=== PATIENT | female | born 1985 | race Caucasian/White ===

== ENCOUNTER → 2016-09-25 | Outpatient (CLI) | payer BC ==
[2016-09-25 12:33] LABS: CH 31.3; HCT 34.2 % (34.0-46.0); HDW 2.55; HGB 12.1 gm/dL (11.4-16.0); MCH 31.8 pg (25.0-35.0); MCHC 35.4 g/dL (31.0-37.0); MCV 89.8 fL (80.0-100.0); Mean Platelet Volume 7.2; RBC 3.81 m/uL (3.80-5.40); RDW 12.1 % (11.5-15.5); WBC 9.2 k/uL (3.8-10.6)
[2016-09-25 12:37] LABS: Amorphous Sediment,Urine Rare /hpf; Appearance,Urine Clear (Clear); Bacteria,Urine Rare /hpf; Bilirubin,Urine Negative (Negative); Glucose,Urine (UA) Negative (Negative); Ketones,Urine Negative (Negative); Leukocyte Esterase,Urine Trace (Negative); Nitrite,Urine Negative (Negative); Particle Count 3414; Protein,Urine Negative (Negative); RBC,Urine <1 /hpf (0-5); Specific Gravity,Urine 1.008 (1.001-1.035); Squamous Epithelial Cell,Urine 2 /hpf (0-4); UA Billing (MACRO vs. MICRO) MICRO; Urobilinogen,Urine <2.0 mg/dL (<2.0); WBC,Urine <1 /hpf (0-5)
[2016-09-25 12:40] LABS: Glucose 76 mg/dL (74-99); Non-African American GFR(MDRD) >60 (>60 ml/min/1.73 sqM)
[2016-09-25 13:13] LABS: Hepatitis B Surface Ag Index 0.07
== END | disposition home or self-care (01) ==
LOC: LABWHC1 11:57
PROVIDERS: ATTEND Obstetrics & Gynecology
DX: Z34.01 Encounter for supervision of normal first pregnancy, first trimester (principal); Z3A.00 Weeks of gestation of pregnancy not specified
CPT/HCPCS: 36415; 81001; 81220; 82565; 82947; 85027; 86762; 86780; 86850; 86900; 86901; 87086; 87340; 87491; 87591

== ENCOUNTER 2017-01-26 10:55 | Outpatient (CLI) | payer BC ==
[2017-01-26 11:43] LABS: Appearance,Urine Clear (Clear); Bacteria,Urine Occasional /hpf; Bilirubin,Urine Negative (Negative); Glucose,Urine (UA) Negative (Negative); Ketones,Urine Negative (Negative); Leukocyte Esterase,Urine Small (Negative); Nitrite,Urine Negative (Negative); Particle Count 3026; Protein,Urine Negative (Negative); Specific Gravity,Urine 1.003 (1.001-1.035); Squamous Epithelial Cell,Urine 3 /hpf (0-4); UA Billing (MACRO vs. MICRO) MICRO; Urobilinogen,Urine <2.0 mg/dL (<2.0); WBC,Urine 1 /hpf (0-5)
[2017-01-26 12:21] LABS: Basophils % (A) 0 %; CH 30.7; CHCM 33.8; Eosinophils # (A) 0.1 k/uL (0-0.7); Eosinophils % (A) 1 %; HCT 36.9 % (34.0-46.0); HDW 2.68; HGB 12.5 gm/dL (11.4-16.0); Luc # (Auto) 0.16; Luc % (Auto) 1; Lymphocytes % (A) 18 %; MCHC 33.9 g/dL (31.0-37.0); MCV 91.3 fL (80.0-100.0); Monocytes # (A) 0.4 k/uL (0-1.0); Monocytes % (A) 4 %; Neutrophils # (A) 8.5 k/uL (1.3-7.7); Neutrophils % (A) 76 %; RBC 4.04 m/uL (3.80-5.40); RDW 13.1 % (11.5-15.5); WBC 11.2 k/uL (3.8-10.6); WBC (Perox) 11.62
[2017-01-26 12:32] LABS: ALT 29 U/L (9-52); AST 23 U/L (14-36); Blood Urea Nitrogen 5 mg/dL (7-17); LDH 439 U/L (313-618); Non-African American GFR(MDRD) >60 (>60 ml/min/1.73 sqM); Uric Acid 4.8 mg/dL (3.7-7.4)
--- NOTE | 2017-04-11 07:45 | P.MSEPDOC ---
Presenting Problems - Arrival Data Date of Arrival on Unit: 01/26/17 Time of Arrival on Unit: 10:55 Mode of Transport: Wheelchair Medical History - Information : 1 Para: 0 Term: 0 : 0 Abortions: Spontaneous or Elective: 0 Number of Living Children: 0 - Gestational Age Gestational Age by YULIANA (wks/days): 34 Weeks and 6 Days Disposition - Disposition Discharge Date: 01/26/17 Discharge Time: 14:23 I agree with the RN Medical Screening Exam: Yes Risk & Benefit of care provided described in d/c instruction: Yes Diagnosis: RELATED CONDITIONS, UNSPECIFIED, THIRD TRIMESTER ( hypertension)
== END 2017-01-26 14:23 | disposition home or self-care (01) ==
LOC: FBPOP 10:55 → MERGE 10:55 → FBPOP 14:23
PROVIDERS: ATTEND Obstetrics & Gynecology
DX: O16.3 Unspecified maternal hypertension, third trimester (principal); Z3A.34 34 weeks gestation of pregnancy
CPT/HCPCS: 59025; 81001; 81050; 82565; 83615; 84156; 84450; 84460; 84520; 84550; 85025; 99215

== ENCOUNTER 2017-02-26 05:45 | Inpatient (IN) | payer BC, OTHER ==
[2017-02-26] MEDS ORDERED: ceFAZolin IN SWFI 2 GM/20 ML SYRINGE IVP ONE (05:59)
[2017-02-26] MEDS ORDERED: CITRIC ACID-SODIUM CITRATE 15 ML CUP PO ONE (05:59)
[2017-02-26] MEDS: LACTATED RINGERS 1,000 ML IV SCH ×4 (06:07→21:08)
[2017-02-26 06:28] LABS: Basophils % (A) 0 %; CH 30.6; CHCM 33.9; Eosinophils # (A) 0.1 k/uL (0-0.7); Eosinophils % (A) 1 %; HCT 38.7 % (34.0-46.0); HDW 2.73; HGB 12.9 gm/dL (11.4-16.0); Luc # (Auto) 0.14; Luc % (Auto) 1; Lymphocytes # (A) 2.7 k/uL (1.0-4.8); Lymphocytes % (A) 27 %; MCH 30.2 pg (25.0-35.0); MCHC 33.3 g/dL (31.0-37.0); MCV 90.8 fL (80.0-100.0); Mean Platelet Volume 7.4; Monocytes # (A) 0.5 k/uL (0-1.0); Monocytes % (A) 5 %; Neutrophils # (A) 6.8 k/uL (1.3-7.7); Neutrophils % (A) 66 %; RBC 4.27 m/uL (3.80-5.40); RDW 13.5 % (11.5-15.5); WBC 10.3 k/uL (3.8-10.6); WBC (Perox) 10.17
[2017-02-26 07:38] VITALS: BMI 32.2
[2017-02-26] MEDS ORDERED: OXYTOCIN 10 UNIT/ML 1 ML VIAL ONE (07:49)
[2017-02-26] MEDS ORDERED: MORPHINE SULFATE (PF) 0.3 MG/0.3 ML SYR ONE (07:49)
[2017-02-26] MEDS ORDERED: KETOROLAC 30 MG/ML 1 ML VIAL ONE (07:49)
[2017-02-26] MEDS ORDERED: ONDANSETRON 4 MG/2 ML VIAL ONE (07:49)
[2017-02-26] MEDS ORDERED: ONDANSETRON 4 MG/2 ML VIAL IVP PRN (08:28)
[2017-02-26] MEDS ORDERED: diphenhydrAMINE 50 MG CAP PO PRN (08:28)
[2017-02-26] MEDS ORDERED: NALOXONE 0.4 MG/ML 1 ML VIAL IV PRN (08:28)
[2017-02-26] MEDS ORDERED: diphenhydrAMINE 50 MG/ML 1 ML VIAL IVP PRN ×2 (08:28)
[2017-02-26] MEDS ORDERED: Acetaminophen-Codeine 300-30mg TAB PO PRN (08:28)
[2017-02-26] MEDS ORDERED: ACETAMINOPHEN TAB 325 MG TAB PO PRN (08:28)
[2017-02-26] MEDS ORDERED: diphenhydrAMINE 25 MG CAP PO PRN (08:28)
[2017-02-26] MEDS ORDERED: ZOLPIDEM 5 MG TAB PO PRN (08:28)
[2017-02-26] MEDS ORDERED: SIMETHICONE 80 MG CHEWABLE PO PRN (08:28)
[2017-02-26] MEDS ORDERED: METOCLOPRAMIDE 5 MG/ML 2 ML VIAL IVP PRN (08:28)
--- NOTE | 2017-02-26 08:31 | P.HPOB ---
History of Present Illness H&P Date: 02/26/17 Chief Complaint: Intrauterine term she had HSV Pablito is a 31-year-old at 39 weeks gestation arise for primary section for history of HSV. Her course was generally uncomplicated other than one outbreak during the she was initiated on Valtrex through the [facility]. She is a carrier for cystic fibrosis but her was going not going to be examined are checked for cystic fibrosis until after baby was born as their insurance would not cover it I did advise 100 it was better to gotten done prior to this but they cannot do it at this time. On physical exam vital signs are stable and afebrile. Heart regular, lungs clear, extremities without pain area positive bowel sounds are noted. Pertinent labs include O+ blood type Rh antibody was negative. Rubella is immune. Hepatitis B surface antigen and RPR were both negative. Assessment intrauterine term. Plan primary low transverse section. Past Medical History Past Medical History: GERD/Reflux Additional Past Medical History / Comment(s): herpes History of Any Multi-Drug Resistant Organisms: MRSA Date of last positivie culture/infection: 2009 MDRO Source:: rt knee Additional Past Surgical History / Comment(s): EGD Past Anesthesia/Blood Transfusion Reactions: Motion Sickness Past Psychological History: No Psychological Hx Reported Smoking Status: Former smoker Past Alcohol Use History: None Reported Additional Past Alcohol Use History / Comment(s): quit smoking 9 months ago, started smoking age 20 Past Drug Use History: None Reported - Past Family History Mother Family Medical History: Cancer, Deep Vein Thrombosis (DVT) Medications and Allergies Home Medications Medication Instructions Recorded Confirmed Type Omeprazole [PriLOSEC] 20 mg PO AC-BRKFST 02/20/17 02/26/17 History Ondansetron HCl [Zofran] 4 mg PO DIRECTED PRN 02/20/17 02/20/17 History Pnv No.95/Ferrous Fum/Folic AC 1 each PO DAILY 02/20/17 02/26/17 History [ Multivitamin Tablet] valACYclovir HCL [Valtrex] 1,000 mg PO DAILY 02/20/17 02/26/17 History Allergies Allergy/AdvReac Type Severity Reaction Status Date / Time No Known Allergies Allergy Verified 02/26/17 05:57 Exam Osteopathic Statement: *. No significant issues noted on an osteopathic structural exam other than those noted in the History and Physical/Consult. - Vital Signs Vital signs: Vital Signs Temp Pulse Resp BP Pulse Ox 02/26/17 07:33 96.8 F L 69 16 130/84 98 Intake and Output 02/25/17 02/26/17 02/26/17 22:59 06:59 14:59 Other: # Voids 1 Weight 93.44 kg Patient Weight 02/27/17 06:59 Weight 93.44 kg Results Result Diagrams: 02/26/17 06:07
--- NOTE | 2017-02-26 08:34 | P.OP ---
Date of Procedure: 02/26/17 Preoperative Diagnosis: Intrauterine at term with history of HSV Postoperative Diagnosis: Same Procedure(s) Performed: Primary low transverse section from Pfannenstiel Anesthesia: spinal Surgeon: Stan Horton Radio Presenter #1: Saman Altman Estimated Blood Loss (ml): 600 IV fluids (ml): 1,000 Urine output (ml): 100 Pathology: other (Placenta) Condition: stable Disposition: floor Operative Findings: Female with Apgars of 9 and 9 at one and 5 minutes and a weight of 7 lbs. 8 oz. Description of Procedure: Patient was taken to the operating suite where a spinal anesthetic was found be adequate. She was prepped and draped in the normal sterile fashion and placed in the dorsal supine position with leftward tilt. Initially a Pfannenstiel skin incision was made this incision was then carried through to the underlying layer of the fashion with a second knife. Fascia was then nicked in the midline and this opening was extended laterally with Messina scissors. Superior and inferior aspect of this incision were then grasped tented up and bluntly and sharply dissected off the rectus muscles. Rectus muscles were then divided in the midline and blunt dissection through the peritoneum was made. This opening was then extended superiorly and inferiorly with good visualization of both bowel and bladder. Bladder blade was placed and the bladder flap was identified. It was entered sharply with Metzenbaum scissors and this opening was extended across the face of the uterus with Metzenbaum scissors and bladder flap was fully created digitally. Knife was then used to incise uterus hemostat was then used to fully go through the uterine wall and this opening was extended bluntly. Head was then atraumatically delivered and mouth and nares were bulb suctioned. Anterior and posterior shoulders were then delivered with gentle downward and upward traction followed by the remainder the baby. Umbilical cord was clamped cut usual fashion an nursery personnel was present to assume care. Placenta was then delivered intact and Pitocin was added to the IV. Uterus was then exteriorized cleared of clots and debris and closed in 2 layers with 0 Vicryl suture. Once excellent hemostasis was obtained 3-0 Vicryl reapproximated the bladder flap. Blood and debris was then suctioned from the posterior cul-de-sac and the uterus was reinserted into the abdomen. Peritoneal layer was then closed [place] suture fascial layer was closed with 0 Vicryl suture one layer of 3-0 Vicryl was placed in the deep subcuticular tissues to close the space the skin was then closed with 3-0 Vicryl on a Jackson needle. Sponge, lap, needle counts were all correct 2. Patient was then taken to the recovery room in stable and satisfactory condition.
[2017-02-26] MEDS: KETOROLAC 30 MG/ML 1 ML VIAL IVP PRN (20:01)
[2017-02-26] MEDS: SENNOSIDES-DOCUSATE SODIUM 1 EACH TAB PO SCH (21:08)
[2017-02-27] MEDS: LACTATED RINGERS 1,000 ML IV SCH (00:07)
[2017-02-27] MEDS: KETOROLAC 30 MG/ML 1 ML VIAL IVP PRN (06:03)
--- NOTE | 2017-02-27 07:03 | P.PN ---
Progress Note - Text Progress Note Date: 02/27/17 Postoperative day 1 status post section under spinal anesthesia, and intrathecal morphine given for postoperative analgesia, patient doing well, has some incisional pain which is managed with oral pain medication ,there is no anesthesia related complications, further management as per her primary team
[2017-02-27 07:39] LABS: Basophils # (A) 0.1 k/uL (0-0.2); Basophils % (A) 1 %; CH 30.4; CHCM 32.9; Eosinophils # (A) 0.1 k/uL (0-0.7); Eosinophils % (A) 1 %; HDW 2.59; HGB 11.2 gm/dL (11.4-16.0); Luc # (Auto) 0.12; Luc % (Auto) 1; Lymphocytes # (A) 2.2 k/uL (1.0-4.8); Lymphocytes % (A) 20 %; MCH 29.8 pg (25.0-35.0); MCV 93.1 fL (80.0-100.0); Mean Platelet Volume 7.5; Monocytes # (A) 0.5 k/uL (0-1.0); Monocytes % (A) 4 %; Neutrophils # (A) 8.1 k/uL (1.3-7.7); Neutrophils % (A) 73 %; RBC 3.76 m/uL (3.80-5.40); RDW 14.7 % (11.5-15.5); WBC (Perox) 11.04
[2017-02-27] MEDS: SENNOSIDES-DOCUSATE SODIUM 1 EACH TAB PO SCH ×2 (07:57→19:14)
--- NOTE | 2017-02-27 08:51 | P.PNOBGPC ---
Subjective - Subjective Principal diagnosis: Postop day 1 Interval history: Pablito is doing very well postop day 1. She's ablating, voiding and she is tolerating her diet. She voices no complaints. Patient reports: Reports appetite normal, Reports voiding normally, Reports pain well controlled, Reports ambulating normally [place]: doing well Objective - Vital Signs Latest vital signs: Vital Signs Temp Pulse Resp BP Pulse Ox 02/27/17 04:00 98 F 75 15 113/71 02/27/17 00:00 98.1 F 73 15 114/73 02/26/17 20:00 98 F 66 15 117/70 02/26/17 16:00 97.5 F L 62 16 114/71 02/26/17 12:00 62 17 133/68 98 02/26/17 10:35 96.9 F L 73 18 115/71 100 02/26/17 10:05 63 17 107/68 98 02/26/17 09:35 76 18 126/70 100 02/26/17 09:20 66 17 130/67 100 02/26/17 09:05 73 17 132/76 100 Intake and Output 02/26/17 02/27/17 02/27/17 22:59 06:59 14:59 Output Total 700 Balance -700 Output: Urine 700 Uretheral (Avery) 400 Other: # Voids 1 1 - Exam Lungs: bilateral: normal Chest: Normal S1, Normal S2 Extremities: Present: normal Abdomen: Present: normal appearance, soft. Absent: distention, tenderness Incision: Present: normal, dry, intact Uterus: Present: normal, firm - Labs Labs: Abnormal Lab Results - Last 24 Hours (Table) 02/27/17 Range/Units 07:21 WBC 11.0 H (3.8-10.6) k/uL RBC 3.76 L (3.80-5.40) m/uL Hgb 11.2 L (11.4-16.0) gm/dL Neutrophils # 8.1 H (1.3-7.7) k/uL
[2017-02-27] MEDS: Acetaminophen-Codeine 300-30mg TAB PO PRN ×2 (10:24→19:14)
[2017-02-27] MEDS ORDERED: PANTOPRAZOLE 40 MG TABLET PO STA (10:32)
[2017-02-27] MEDS: IBUPROFEN 600 MG TAB PO PRN ×2 (14:54→22:43)
[2017-02-27 23:31] VITALS: RESP 16
--- NOTE | 2017-02-28 08:37 | P.DS ---
Providers Date of admission: 02/26/17 05:45 Expected date of discharge: 02/28/17 Attending physician: Stan Horton Primary care physician: Stated None Hospital Course: Isabella is doing very well post op day 2. She is ambulating, voiding, and she is tolerating her diet. She voices no complaints. Vital signs are stable and afebrile. Heart regular, lungs clear, extremities without pain. Abdomen soft uterus is firm lochia is reported be light and her incision is clean dry and intact. Assessment postop day 2. Plan discharged home follow up with me in 1 week. Prescription for towel #3 and Motrin has been provided. She is breast- feeding and therefore caution is emphasized with use of Tylenol No. 3 and breast -feeding as this may make her baby more tired. She will limit her use as needed. Assessment post op day 2. Plan discharged home follow me in 1 week Patient Condition at Discharge: Good Plan - Discharge Summary New Discharge Prescriptions: New Acetaminophen-Codeine 300-30mg [Tylenol #3] 1 tab PO Q4H PRN #30 tablet PRN Reason: Pain Ibuprofen [Motrin] 600 mg PO Q6HR PRN #30 tab PRN Reason: Pain No Action valACYclovir HCL [Valtrex] 1,000 mg PO DAILY Omeprazole [PriLOSEC] 20 mg PO AC-BRKFST Ondansetron HCl [Zofran] 4 mg PO DIRECTED PRN PRN Reason: Nausea Pnv No.95/Ferrous Fum/Folic AC [ Multivitamin Tablet] 1 tab PO DAILY Discharge Medication List Omeprazole [PriLOSEC] 20 mg PO AC-BRKFST 02/20/17 [History] Ondansetron HCl [Zofran] 4 mg PO DIRECTED PRN 02/20/17 [History] Pnv No.95/Ferrous Fum/Folic AC [ Multivitamin Tablet] 1 tab PO DAILY [History] valACYclovir HCL [Valtrex] 1,000 mg PO DAILY 02/20/17 [History] Acetaminophen-Codeine 300-30mg [Tylenol #3] 1 tab PO Q4H PRN #30 tablet [Rx] Ibuprofen [Motrin] 600 mg PO Q6HR PRN #30 tab 02/28/17 [Rx] Activity/Diet/Wound Care/Special Instructions: No heavy lifting, limit stairs and driving, and pelvic rest. If any high temperatures, heavy bleeding, or severe pain call my office. Discharge Disposition: HOME SELF-CARE
[2017-02-28] MEDS: SENNOSIDES-DOCUSATE SODIUM 1 EACH TAB PO SCH (08:43)
[2017-02-28] MEDS: IBUPROFEN 600 MG TAB PO PRN (08:43)
[2017-02-28 08:49] VITALS: BP 121/69; PULSE 75; TEMP 98.3
[2017-02-28] MEDS ORDERED: PANTOPRAZOLE 40 MG TABLET PO STA (09:18)
== END 2017-02-28 10:50 | disposition home or self-care (01) | DRG 766 ==
LOC: 4FBP 05:45
PROVIDERS: ADMIT Obstetrics & Gynecology; ATTEND Obstetrics & Gynecology
PROC: 10D00Z1 Extraction of Products of Conception, Low, Open Approach (ICD-10-PCS; principal; 2017-02-26 08:01)
DX: O98.32 Other infections with a predominantly sexual mode of transmission complicating childbirth (principal); A60.04 Herpesviral vulvovaginitis; Z37.0 Single live birth; Z14.1 Cystic fibrosis carrier; Z3A.39 39 weeks gestation of pregnancy; Z79.899 Other long term (current) drug therapy; Z87.891 Personal history of nicotine dependence; O99.62 Diseases of the digestive system complicating childbirth; K21.9 Gastro-esophageal reflux disease without esophagitis
CPT/HCPCS: 85025; 86850; 86870; 86880; 86900; 86901; 86902; 88307

== ENCOUNTER → 2020-02-18 | Outpatient (CLI) | payer OTHER ==
--- NOTE | 2020-02-18 14:55 | US ---
EXAMINATION TYPE: US pelvic complete DATE OF EXAM: 02/18/2020 COMPARISON: NONE CLINICAL HISTORY: R10.2 pelvic pain. irregular menses, pelvic tenderness during menses for 3 years th at is getting worse, painful intercourse, 2017 TECHNIQUE: Transabdominal (TA). Date of LMP: 02/10/20 EXAM MEASUREMENTS: Uterus: 6.2 x 3.7 x 5.0 cm Endometrial Stripe: 0.8 cm Right Ovary: 4.2 x 2.1 x 2.2 cm Left Ovary: 4.0 x 1.9 x 1.5 cm 1. Uterus: Retroverted wnl 2. Endometrium: wnl 3. Right Ovary: follicles noted 4. Left Ovary: follicles noted 5. Bilateral Adnexa: wnl 6. Posterior cul-de-sac: wnl Urinary bladder is sonolucent. Posterior wall is normal. IMPRESSION: 1. Normal pelvic ultrasound.
== END | disposition home or self-care (01) ==
LOC: RADUSWWP 13:30
PROVIDERS: ATTEND Obstetrics & Gynecology
DX: R10.2 Pelvic and perineal pain (principal); N92.1 Excessive and frequent menstruation with irregular cycle; N94.10 Unspecified dyspareunia
CPT/HCPCS: 76856

== ENCOUNTER → 2020-10-08 | Outpatient (CLI) | payer OTHER ==
--- NOTE | 2020-10-08 13:58 | XR ---
EXAMINATION TYPE: XR shoulder complete LT DATE OF EXAM: 10/08/2020 COMPARISON: NONE HISTORY: Pain TECHNIQUE: Three views are submitted. FINDINGS: The osseous structures are intact. There is no acute fracture or dislocation. The AC joint is maint ained. IMPRESSION: 1. No acute process.
== END | disposition home or self-care (01) ==
LOC: RADXRMAIN 13:26
PROVIDERS: ATTEND Internal Medicine
DX: M25.512 Pain in left shoulder (principal)

== ENCOUNTER → 2020-11-02 | Outpatient (CLI) | payer OTHER ==
--- NOTE | 2020-11-02 17:11 | XR ---
EXAMINATION TYPE: XR cervical spine comp DATE OF EXAM: 11/02/2020 TECHNIQUE: Frontal, lateral, oblique, and open mouth view of the cervical spine are obtained. HISTORY: M54.2 . Left shoulder pain, limited mobility, numbness in left arm. COMPARISON: None FINDINGS: The cervical spine is visualized in its entirety from C1 thru the top of T1 level. Normal alignment without evidence of acute fracture or subluxation. No spondylolisthesis. There is disc spac e narrowing and moderate anterior osteophytic spurring at C3-C4. There is mild bony encroachment at C 3-C4 neural foramina bilaterally. The pre-vertebral soft tissue appears within normal limits. The den s is within normal limits on the open mouth view. IMPRESSION: 1. No acute fracture or dislocation is seen in the cervical spine. 2. Degenerative change at C3-C4 as above.
== END | disposition home or self-care (01) ==
LOC: RADXRMAIN 12:34
PROVIDERS: ATTEND Internal Medicine
DX: M47.812 Spondylosis without myelopathy or radiculopathy, cervical region (principal)
CPT/HCPCS: 72050

== ENCOUNTER → 2021-03-24 | Outpatient (CLI) | payer BC, OTHER ==
--- NOTE | 2021-03-24 14:19 | XR ---
EXAMINATION TYPE: XR cervical spine comp DATE OF EXAM: 03/24/2021 COMPARISON: NONE HISTORY: Pain TECHNIQUE: Four views are submitted. FINDINGS: The odontoid is intact. There are no compression deformities. The prevertebral soft tissue structur es are within normal limits. Small bilateral cervical ribs. Hypertrophic degenerative changes C3-C4. IMPRESSION: 1. Hypertrophic spurring and degenerative changes C3-C4..
== END | disposition home or self-care (01) ==
LOC: RADXRMAIN 13:31
PROVIDERS: ATTEND Physician Assistant
DX: M47.812 Spondylosis without myelopathy or radiculopathy, cervical region (principal)
CPT/HCPCS: 72050

== ENCOUNTER → 2021-08-03 | Outpatient (CLI) | payer OTHER ==
[2021-08-03 18:51] LABS: INR 0.9 (0.90-1.11)
[2021-08-03 19:04] LABS: Basophils # (A) 0.08 X 10*3/uL (0.00-0.10); Basophils % (A) 1.5 %; Eosinophils # (A) 0.15 X 10*3/uL (0.04-0.35); Eosinophils % (A) 2.7 %; HGB 13.9 g/dL (12.0-15.0); Immature Grans, Automated 0.2 %; Lymphocytes # (A) 2.28 X 10*3/uL (0.90-5.00); Lymphocytes % (A) 41.5 %; MCH 31.5 pg (27.0-32.0); MCHC 32.3 g/dL (32.0-37.0); MCV 97.5 fL (80.0-97.0); Monocytes % (A) 7.3 %; NRBC Per 100 WBC 0 /100 WBCS (0.0-0.0); Neutrophils # (A) 2.58 X 10*3/uL (1.80-7.70); Neutrophils % (A) 46.8 %; Platelet Count 278 X 10*3/uL (140-440); RBC 4.41 X 10*6/uL (4.10-5.20); RDW 12.8 % (11.5-14.5)
[2021-08-03 20:47] LABS: African American GFR (CKD) 135.9 (60.0-200.0); Anion Gap 10.1 mmol/L (10.00-18.00); BUN/Creat Ratio 21.67 Ratio (12.00-20.00); Calcium 9.9 mg/dL (8.7-10.3); Carbon Dioxide 23.9 mmol/L (20.0-27.5); Non-African American GFR(CKD) 117.3 (60.0-200.0); Potassium 4.6 mmol/L (3.5-5.5)
== END | disposition home or self-care (01) ==
LOC: LABPAT 10:51
PROVIDERS: ATTEND Orthopaedic Surgery
DX: Z01.812 Encounter for preprocedural laboratory examination (principal); Z22.322 Carrier or suspected carrier of Methicillin resistant Staphylococcus aureus; M50.223 Other cervical disc displacement at C6-C7 level
CPT/HCPCS: 80048; 85025; 85610; 87070; 93005

== ENCOUNTER 2021-08-15 06:03 | Day surgery (SDC) | payer OTHER ==
[2021-08-10 11:36] VITALS: BMI 25.0
--- NOTE | 2021-08-14 19:11 | P.HPOR ---
History of Present Illness H&P Date: 07/25/21 Chief Complaint: Arm pain, Neck pain, Weakness [facility] Date of :[birth year] R14Age: 35 year Height: 5'7" Weight: 150 lbs BP:120/72 BMI: 23.49 kg/m2 Occupation: [employer] mom VAS: 10 CHIEF COMPLAINT: Re C3-C5 Spondylosis HISTORY: Xrays No new imaging taken today Trauma or injury No Work-Related No Pain description Aching, sharp Location medial posterior diffuse Activity Modification yes, unable to bend/lift/twist regarding the neck. Left arm is very painful and she is unable to complete many of her daily functions due to it. Hand Dominance right DOI: Acute on chronic, no injury or trauma. TREATMENTS COMPLETED: 6 weeks of PT completed? Yes, without improvements. Physician directed home exercise completed? yes, without improvements. Medications List: Medrol dose curly x2 with no improvements. Meloxicam with no improvement. Flexeril and Motrin without improvements. Zanaflex without relief. Alternative interventions Chiropractic?: yes , with no relief Brace: No Injections No RFA: No SUBJECTIVE: Today the patient presents to the office for a pre operative review of the planned C5-C7 ACDF. Since the time of the last appointment she reports that her symptoms have continued to give her sigificant issues and impact her daily functionality. She reports significant loss in ROM with twisting of the cervical spine as well as with the left upper extremity as well. Patient denies any discernable changes to her symptoms with the conservative modalties trialed thus far. She reports significant dysfunction and is unable to complete most daily functions. Patient denies any bladder or bowel retention/incontinence, no perineal numbness/tingling, and ambulates independently. She reports that she is ready to proceed with the planned procedure. HPI: The patient last presented to the office on 02/14/2021 for an evaluation of her cervical spine. Since the time of her last appointment the patient notes that her symptoms have not improved. She has taken both Motrin and Flexeril for pain management with no improvements to her symptoms. Additionally, she has been in physical therapy without any change as well. She is ready to start discussing operative intervention for her symptoms. Ms. Javier presents to the office to review the results of her MRI of the cervical spine obtained on 12/30/2020. Regarding her symptoms the patient states that her symptoms have not improved at all since the time of the last appointment. Of no te, the patient did not complete any physical therapy after her last appointment on 12/01/2020. Overall she notes that she has not seen any improvements to her symptoms with conservative treatments. Ms. Javier was last seen on 12/01/2020 regarding her cervical spine pain. She noted that the pain started on (09/20/2020) on the posterior side of her left shoulder, specifically the shoulder blade. This progressed into numbness that started on (12/28/2020) that effects the entirety of the left upper extremity. This numbness is quite severe and she notes that she doesn't have hardly any feeling in her left arm, more specifically she has almost no feeling in her left middle and index finger. She has seen her chiropractor 10 times for this issue and has found no relief of her symptoms at this time. Along with this she has tried two Medrol dose paks with no improvement. Patient also denied improvement to her symptoms with Ibuprofen. She was taking Voltaren orally but she reported that this made her sick, so she has since stopped taking it. Patient denies having any physical therapy at this time. Patient did present without the use of ambulatory aides. The patients' past social, medical, family, surgical history, as well as review of systems, have been reviewed. Please refer to the Neurosurgery History and Physical form that has been scanned in to our electronic medical record system. 14 points review of systems completed and as stated in HPI, all other systems reviewed are negative. Review of Systems 14 points review of systems completed and as stated in HPI, all other systems reviewed are negative. Past Medical History Past Medical History: GERD/Reflux, Osteoarthritis (OA) Additional Past Medical History / Comment(s): herpes, migraines, hx high blood pressure during a , constipation, herniated disks, History of Any Multi-Drug Resistant Organisms: MRSA Date of last positivie culture/infection: 2010 MDRO Source:: right knee Past Surgical History: Section Additional Past Surgical History / Comment(s): EGD, Past Anesthesia/Blood Transfusion Reactions: Motion Sickness, Postoperative Nausea & Vomiting (PONV) Additional Past Anesthesia/Blood Transfusion Reaction / Comment(s): post op vomitnig 9 hrs after C/S Smoking Status: Former smoker - Past Family History Mother Family Medical History: Cancer, Deep Vein Thrombosis (DVT), Pulmonary Embolus Medications and Allergies Home Medications Medication Instructions Recorded Confirmed Type ondansetron HCL [Zofran] 4 mg PO DIRECTED PRN 02/20/17 08/10/21 History Ibuprofen [Motrin] 600 mg PO Q6HR PRN #30 tab 02/28/17 08/10/21 Rx Gabapentin 300 mg PO TID 08/10/21 08/10/21 History Allergies Allergy/AdvReac Type Severity Reaction Status Date / Time acetaminophen AdvReac Nausea & Verified 08/10/21 11:26 [From Tylenol-Codeine #3] Vomiting codeine AdvReac Nausea & Verified 08/10/21 11:26 Vomiting Physical Examination Osteopathic Statement: *. No significant issues noted on an osteopathic structural exam other than those noted in the History and Physical/Consult. PHYSICAL EXAMINATION: General: Awake, alert, appropriate for age, in no acute distress. HEENT: No unusual neck masses around region of lateral neck triangle, thyroid, supraclavicular groove Heart: Regular rate and rhythm, normal S1, S2 and no murmur/gallop. Lungs: Clear to auscultation bilaterally with no use of accessory muscles. Extremities: Skin warm and dry without acute lesions, coloration, temperature, skin intact, no tenderness or erythema Integument: Hairy patches: Absent Dorsal skin dimples: Absent Cafe au lait spots: Absent Surgical incisions: No Palpation: Please see Pain drawing on Intake sheet for further detail. Midline spinal tenderness: No E6 Paralumbar tenderness: No E6 Parathoracic tenderness: No E6 Buttocks tenderness: No E6 Special findings: No POSTURAL and MUSCULO-SKELETAL EVALUATION: Coronal Balance: NEUTRAL Recumbent testing: Patient is able to lay flat on back Sagittal Balance: NEUTRAL Shoulder Profile: LEVEL Pelvic Girdle: LEVEL Neck ROM: RESTRICTED to the left side with pain Lumbar ROM: UNRESTRICTED Shoulder ROM: Symmetrical Hip ROM: Symmetrical Knee ROM: Symmetrical Hands: Normal appearance, symmetrical Feet: Normal appearance, Symmetrical VASCULAR STATUS : LEFT RIGHT Wrist Pulses INTACT INTACT Pedal Pulses (Dors. pedis & post.tibialis) INTACT INTACT Color NORMAL NORMAL Edema Absent Absent NEUROLOGIC EXAMINATION: Mental Status:Awake and alert, fully oriented, with normal attention, concentration and memory, and fluent, appropriate speech. Cranial Nerves: I: Olfactory not tested. II: Visual acuity normal, no visual field deficit noted with confrontation. III,IV: Normal pupillary reflexes & intact extraocular movements without nystagmus. V,: Intact symmetrical facial sensation. VII: Intact symmetrical facial motor movement VIII: Hearing intact. IX,X: Intact gag, swallow, & normal voice. XI: Sternocleidomastoid, trapezius function intact. XII: Tongue midline with normal movements. L'hermitte's Sign: Negative / absent Spurling'Sign: Absent bilaterally. Cubital percussion test: Absent bilaterally. Lolly-Tinel sign - Carpal region: Absent bilaterally. Straight Leg Raising: Absent bilaterally. Crossed straight leg raise: negative O8 MOTOR EXAM (0-5/5, N/T) STRENGTH RIGHT LEFT Shoulder Abd (not part of the CHRIS score) 5 5 Elbow Flexors 5 5 Elbow Extensor 5 4 Wrist Dorsiflexors 5 4 Finger Abductor 5 5 Mental Retardation Aide 5 3 Hip Flexor (Not part of CHRIS Motor score) 5 5 Knee Flexor 5 5 Knee Extensor 5 5 Ankle dorsiflexor 5 5 Ankle plantarflexion 5 5 Extensor hallucis 5 5 REFLEXES(0-4/2, NT) RIGHT LEFT Upper Extremities 2 2 Lower Extremities 2 2 Pathological Reflexes RIGHT LEFT Banks's Absent Present Clonus Absent Absent Babinski Absent Absent # Indicates mechanical impairment Muscle appearance: Symmetrical, without signs of atrophy or dystrophy. Rectal Tone:Deferred Normal, strong with volition control Sensory system (0-4, N/T) Test type RU TOD RL LL Joint-Position 2 2 2 2 Vibration 2 2 2 2 Pain & LT sense 2 2 2 2 Dermatomal Deficit: None C5-6 None None Gait and Functional Evaluation: Ambulatory aids: Independent Romberg's test: Intact bilaterally Toe heel walk / heel-toe walk intact while maintaining satisfactory balance? yes Squatting/straightening w/o assistance to a min of 60 degree knee flexion? yes Single leg stance: intact Trendelenburg sign negative bilaterally Hand and finger dexterity intact bilaterally? yes Disdiadochokinesis examination negative bilaterally? yes Results XRay taken on 12/01/20 of Cervical was reviewed by Dr. Alvares and indicates: -C 3-4 and C4-5 spondylosis noted. There is kyphosis of the C3-4 segment with trace anterior listhesis noted through flexion. Similar findings at C4-5 noted. There is no overt instability and C0-1 and C1-2 joints appear stable through motion. There are no other fracture or dislocations noted. MRI of the cervical spine from 12/22/2020 demonstrates: This demonstrates C5-6 and C6-7 HNP with moderate to severe stenosis in these areas along with b/l foraminal L>R stenosis. There is no instability noted C0-1 or C1-2. There is subaxial stability. There is disc height loss C5-7 related to HNP and stenosis as well as spondylosis. There is no fracture or dislocation noted at this time. Assessment and Plan Assessment: 1. C5-C7 Herniated nucleus pulposus 2. Cervical Stenosis, severe 3. LUE weakness 4. LUE radiculopathy Plan: Based on my findings I suggest the following course of action: We discussed surgical options for her. At this time we need to exhaust conservative treatments before surgical is considered. She is nearing this.I recommend a C5-6 and C6-7 TDR due to her age, symptoms, pathology and debility. We did discuss this procedure and all questions/concerns were addressed. The patient expressed understanding and wishes to proceed with the planned procedure. Follow up with PCP for surgical clearance, referred to Dr. Rowe for this. 2. Spine Surgery Risk Review Pablito Javier is presenting for evaluation of her cervical spine. It was my pleasure to have seen and examined Pablito Javier. In our visit today we have had a chance to go over subjective complaints, physical examination findings and treatments including the natural course history without intervention and various interventional options. The patients imaging demonstrates XRAYS: C 3-4 and C4-5 spondylosis noted. There is kyphosis of the C3-4 segment with trace anterior listhesis noted through flexion. Similar findings at C4-5 noted. There is no overt instability and C0-1 and C1-2 joints appear stable through motion. There are no othe fracture or dislocations noted. MRI: C5-6 and C6-7 HNP with moderate to severe stenosis in these areas along with b/l foraminal L>R stenosis. There is no instability noted C0-1 or C1-2. There is subaxial stability. There is disc height loss C5-7 related to HNP and stenosis as well as spondylosis. There is no fracture or dislocation noted at this time. On physical exam, Pablito Javier demonstrates restricted ROM to the left side as well as significant weakness with regard to the left upper extremity. I have explained to the patient that as their condition progresses it will cause further neurological deficits and eventual paralysis. Based on the patients imaging, physical exam, and the rapid progression and disabling nature of their symptoms, at this time I recommend surgery in the form or a: C5-C7 Total Disc Replacement. I discussed the risk and benefits of this procedure at length with Pablito Javier. The patient agreed to considered pursuing the procedure abovementioned. Prior to surgery, she should follow up with her PCP (Cardio, ID, IM etc) for clearance. Questions were invited and answered, and the patient wishes to proceed as outlined below. Currently, I am recommendin.C5-C7 Total Disc Replacement 2.Follow up with PCP for surgical clearance 3.Review of surgical risks and benefits as well as an educational packet on the proposed surgical procedure. Risks: All surgical procedures come with inherent risks, including those related to positioning, anesthesia, intraoperative findings, and postoperative complications. It is important to understand that surgery does not come with any guarantee of a successful outcome as complications and adverse events are always possible. The patient was given a handout in office today discussing the surgical procedure and risks associated with the intervention, both of which were discussed with the patient. These risks include but are not limited to the following: * Experiencing same, different or even worse symptoms in back, neck, arms, or legs compared to before surgery. Requiring further surgery or other forms of treatment presently or at some time in the future at same or other levels of the intended spine surgery. On an extreme but fortunately relatively rare basis severe complication such as blindness, stroke, heart attack, temporary and/or permanent nerve injury, paralysis, coma, or may occur, sometimes without known explanation. Surgical complications may include but are not limited to risk of infection, fluid accumulation in the surgical dissection site, including a seroma or hematoma, that requires additional surgery, wound drainage, bleeding, new numbness or weakness, vision changes/loss, spinal fluid leakage, non-healing and/or infected incision, headaches, difficulty or inability to swallow, hoarseness, hemopneumothorax, pneumothorax, impotence, retrograde ejaculation, vaginal dryness; injury to nerves, spinal cord, blood vessels, lymphatics or other vital organs (i.e., bowel injury, injury to the great vessels); heterotopic bone formation; complications related to the hardware such as screws, rods, cages including misplaced hardware, device failure, instrumentation at the wrong spine level, hardware fracture/breakage, or hardware loosening; vertebral failure of the spinal column above or below the newly placed hardware; retained surgical instrumentations or devices and the need for further surgery. * Medical risks of the planned spine surgery include but are not limited to generalized Infections to the whole body or local areas outside of the surgical site (sepsis), heart attack, bleeding, anaphylaxis, meningitis, seizure, epilepsy, hearing loss, burn hannon, laceration of the head or other areas of the body, bruising, hypersensitivity of the skin, bladder over distension; allergic reaction; shoulder injury related to positioning; fat, blood and air clots to other areas of the body like heart, lungs, brain; failure of internal organs such as lungs, kidneys, liver and excessive bleeding. If blood transfusions are necessary, note that transfusions may cause intolerance reactions such as anaphylaxis or other complex reactions. Despite best efforts, the results of spine surgery might not heal in terms of bone, soft tissues such as skin, fascia, ligaments, and joints. Additionally, in order to achieve best possible results, spine surgery may be carried out beyond the initially planned levels and involve decompression, fusion including insertion of hardware at levels other than the original intended area of surgical interest change some portions of the procedure in order to ensure the best possible outcomes. With spine surgery and spinal fusion, there are different off label uses of instrumentation (devices, implants and hardware) as well as biological substances (bone morphogenic proteins, demineralized bone matrix) as well as using extra bone from allograft sources (i.e. cadaver bone) or autograft (iliac crest bone, ribs, or the spine itself). The patient has been given information about these practices and their inherent risks and benefits. [facility] is an educational center that serves as a training facility for neurosurgical and orthopedic SERVICE COORDINATOR and Nursing students. Physician assistants are medically trained surgical providers who function in the outpatient, inpatient, and operating room setting under the direct supervision of the attending surgeon. [facility] has multiple operating rooms with single and overlapping rooms running daily. They currently function under the required guidelines as produced by the [facility] Finance Committee with regards to the overlapping rooms and will continue to comply with changes to this policy as they occur. The requirements include and are complied with as follows: (1) the critical portions of the overlapping rooms will not occur at the same time, (2) the attending physician will be physically present during the critical portions of the procedure and immediately available during the entire case, and (3) a back-up attending is designated should the primary attending not be immediately available. The patient has had a chance to review all the listed information, has been given print outs detailing this information, and has had all his/her questions answered to their satisfaction. It was my pleasure to have seen and examined Pablito Javier. In our visit today we have had a chance to go over my understanding of our patient's current condition, the natural course history without intervention and various interventional options. Questions were invited and answered, and the patient wishes to proceed as outlined above. I have seen and examined the patient for 25 minutes and we have spent more than 50% of the time in repeat and detailed counseling about the patient's condition, its natural course history with out and as much as can be predicted with surgery and re-review of various surgical treatment options. In conclusion, Pablito Javier requested we proceed with the above suggested surgery and are willing to accept risks and limitations of the suggested surgery as nature of the disease process and our best attempts at treatment for the condition. Thank you again for allowing us to be part of your patient's care. Please don't hesitate to contact me if you have any further questions. Signed and authenticated by: [facility] [address] [facility], [address] [address]
[~2021-08-15 06:03] MED LIST: ACETAMINOPHEN TAB 500 MG TAB PO PRN; GABAPENTIN 300 MG CAP PO PRN; ONDANSETRON 4 MG/2 ML VIAL IVP PRN; TRANEXAMIC ACID IN NACL,ISO-OS 1,000 MG in SALINE 1 100ML.BAG IVPB PRN
[2021-08-15] MEDS ORDERED: ONDANSETRON 4 MG/2 ML VIAL ONE ×4 (07:07→17:23)
[2021-08-15] MEDS ORDERED: DEXAMETHASONE SOD PHOSPHATE 4 MG/ML 1 ML VIAL ONE (07:07)
[2021-08-15] MEDS ORDERED: ACETAMINOPHEN IV (For NPO) 1,000 MG/100 ML VIAL ONE (07:07)
[2021-08-15] MEDS ORDERED: LIDOCAINE 2% INJ 20 MG/ML (2 ML VIAL) ONE (07:25)
[2021-08-15] MEDS ORDERED: ePHEDrine 50 MG/ML 1 ML VIAL ONE (07:25)
[2021-08-15] MEDS ORDERED: MIDAZOLAM 2 MG/2 ML VIAL ONE (07:25)
[2021-08-15] MEDS ORDERED: SODIUM CHLORIDE 0.9% 100 ML BAG ONE (07:25)
[2021-08-15] MEDS ORDERED: TRANEXAMIC ACID IN NACL,ISO-OS 1,000 MG/100 ML BAG ONE (07:25)
[2021-08-15] MEDS ORDERED: HYDROmorphone (PF) 1 MG/ML ONE ×2 (07:25→10:40)
[2021-08-15] MEDS ORDERED: ceFAZolin 1,000 MG VIAL ONE ×2 (07:25→07:29)
[2021-08-15] MEDS ORDERED: PROPOFOL 10 MG/ML 20 ML VIAL IV ONE (07:25)
[2021-08-15] MEDS ORDERED: KETAMINE 10 MG/ML 20 ML VIAL ONE (07:25)
[2021-08-15] MEDS ORDERED: fentaNYL (PF) 50 MCG/ML 2 ML AMP ONE (07:25)
[2021-08-15] MEDS ORDERED: SUCCINYLCHOLINE CHLORIDE 100 MG/5 ML SYR IV ONE (07:25)
[2021-08-15] MEDS ORDERED: SODIUM CHLORIDE 0.9% (PF) 10 ML VIAL ONE (07:29)
[2021-08-15] MEDS ORDERED: LACTATED RINGERS 1,000 ML BAG IV ONE (07:29)
[2021-08-15] MEDS ORDERED: THROMBIN (BOVINE) 5,000 UNIT VIAL ONE (07:29)
[2021-08-15] MEDS ORDERED: BUPIVACAINE-EPI 0.5%-1:200,000 10 ML VIAL ONE (07:29)
[2021-08-15] MEDS ORDERED: GELATIN SPONGE,ABSORB (SMALL) 1 EACH SPONGE ONE (07:29)
--- NOTE | 2021-08-15 13:37 | FL ---
EXAMINATION TYPE: FL guidance operating room DATE OF EXAM: 08/15/2021 HISTORY: Fluoroscopy time 1 minute and 13 seconds of fluoroscopy provided. IMPRESSION: 1. Fluoroscopy time.
--- NOTE | 2021-08-15 13:38 | XR ---
EXAMINATION TYPE: XR cervical spine limited DATE OF EXAM: 08/15/2021 COMPARISON: NONE HISTORY: Postop TECHNIQUE: 2 intraoperative views are submitted FINDINGS: Resolution is limited. Postsurgical change appears in near-anatomic alignment. IMPRESSION: Postoperative change
[2021-08-15] MEDS ORDERED: MAGNESIUM HYDROXIDE 2,400 MG/10 ML CUP PO PRN (13:50)
[2021-08-15] MEDS ORDERED: HYDROmorphone 0.5 MG/0.5 ML SYRINGE IVP PRN ×2 (13:50→22:07)
[2021-08-15] MEDS ORDERED: CYCLOBENZAPRINE 5 MG TAB PO PRN (13:50)
[2021-08-15] MEDS ORDERED: ONDANSETRON 4 MG/2 ML VIAL IVP PRN (13:50)
[2021-08-15] MEDS ORDERED: SENNOSIDES-DOCUSATE SODIUM 1 EACH TAB PO PRN (13:50)
[2021-08-15] MEDS ORDERED: HYDROcodone/APAP 5-325MG 1 EACH TAB PO PRN (14:00)
[2021-08-15] MEDS ORDERED: HYDROcodone/APAP 10-325MG 1 EACH TAB PO PRN (14:00)
[2021-08-15] MEDS ORDERED: PROCHLORPERAZINE INJ 10 MG/2 ML VIAL IVP PRN (14:01)
[2021-08-15] MEDS ORDERED: diphenhydrAMINE 50 MG/ML 1 ML VIAL IVP ONE (14:09)
--- NOTE | 2021-08-15 17:06 | P.CONS ---
History of Present Illness - Reason for Consult Consult date: 08/15/21 Medical Management Requesting physician: Michael Royal - History of Present Illness History of Presenting Illness: Patient is a very pleasant 36-year-old female with past medical history of gestational hypertension, herpes, migraines, neuropathy, and herniated disks. She is currently admitted under orthospine surgical team status post cervical fusion. We have been consulted for continued medical management throughout patient's hospitalization. Patient was seen and fully evaluated at bedside. Patient was resting comfortably in bed with a friend/family member at bedside. Patient reports postoperative pain is currently controlled. Soft C-collar is in place. Patient denies having any postoperative nausea or vomiting and is tolerating oral intake. Patient reports urinating without any difficulties and denies experiencing any numbness/tingling/weakness in her extremities. Patient denies any history of DVTs or PEs. Review of systems: Pertinent positives and negatives as discussed in HPI, a complete review of systems was performed and all other systems are negative. Physical exam: Vital signs reviewed and stable. General: Nontoxic, no distress and appears stated age. Derm: Skin warm and dry, normal coloration for ethnicity. Head: Atraumatic, normocephalic and symmetric. Soft c-collar in place. Eyes: EOMs intact, no lid lag, and anicteric sclera Mouth: no lip lesions, mucus membranes moist Cardiovascular: regular rate and rhythm with normal S1S2, no murmur, positive posterior tibial pulses bilaterally, and cap refill < 2 seconds. Lungs: Respirations even, regular, and unlabored on room air. Lungs CTA bilaterally, no rhonchi, no rales, no wheezing, and no accessory muscle usage. Abdominal: soft, nontender to palpation, no guarding, no appreciable organomegaly Ext: ROM intact. No gross muscle atrophy, no edema, no contractures Neuro: Speech clear, face symmetrical and CN II-XII grossly intact with no noted focal neuro deficits Psych: Alert and oriented to person, place, time, and situation. Appropriate and pleasant affect. Assessment and Plan of Care: Herniated disks resulting in neuropathy Status post C5 through C7 cervical fusion -Management per primary admitting orthospine surgical team including pain management, DVT prophylaxis, wound care, and PT/OT. -Patient currently on DVT prophylaxis with SCDs. -Patient to continue daily medication regimen with gabapentin 300 mg 3 times daily for treatment of neuropathy. -Symptomatic care and pain management -Encourage incentive spirometry use 10-15 times hourly while awake. -We will follow up with morning labs including CBC and BMP. Thank you for allowing us to participate in the care of this pleasant patient. Do not hesitate to contact us with questions. Someone can be reached from the [facility] hospitalist group all hours of the day at [phone] or via [employer]. I reviewed the documentation as provided by the PRATIK above, who is the original author of this note. I agree with the documented assessment and plan, with the following changes: None Past Medical History Past Medical History: GERD/Reflux, Osteoarthritis (OA) Additional Past Medical History / Comment(s): herpes, migraines, hx high blood pressure during a , constipation, herniated disks, History of Any Multi-Drug Resistant Organisms: MRSA Year Discovered:: 2010 MDRO Source:: right knee Past Surgical History: Section Additional Past Surgical History / Comment(s): EGD, Past Anesthesia/Blood Transfusion Reactions: Motion Sickness, Postoperative Nausea & Vomiting (PONV) Additional Past Anesthesia/Blood Transfusion Reaction / Comm: post op vomitnig 9 hrs after C/S Smoking Status: Former smoker - Past Family History Mother Family Medical History: Cancer, Deep Vein Thrombosis (DVT), Pulmonary Embolus Medications and Allergies Home Medications Medication Instructions Recorded Confirmed Type ondansetron HCL [Zofran] 4 mg PO DIRECTED PRN 02/20/17 08/10/21 History Ibuprofen [Motrin] 600 mg PO Q6HR PRN #30 tab 02/28/17 08/10/21 Rx Gabapentin 300 mg PO TID 08/10/21 08/10/21 History Cyclobenzaprine [Flexeril] 5 mg PO TID #30 tablet 08/16/21 Rx Gabapentin 300 mg PO TID #90 cap 08/16/21 Rx HYDROcodone/APAP [[place] Elixir 15 ml PO Q4HR PRN 7 Days #630 ml 08/16/21 Rx 7.5-325Mg/15Ml] Indomethacin [Indocin] 25 mg PO BID 14 Days #28 capsule 08/16/21 Rx Polyethylene Glycol 3350 [Miralax] 17 gm PO DAILY PRN #527 gm 08/16/21 Rx Sennosides/Docusate Sodium [Senna 1 each PO DAILY #20 tablet 08/16/21 Rx Plus 8.6-50 mg Tablet] cefaDROXiL [Duricef] 500 mg PO Q12HR 5 Days #10 cap 08/16/21 Rx Allergies Allergy/AdvReac Type Severity Reaction Status Date / Time acetaminophen AdvReac Nausea & Verified 08/10/21 11:26 [From Tylenol-Codeine #3] Vomiting codeine AdvReac Nausea & Verified 08/10/21 11:26 Vomiting Physical Exam Osteopathic Statement: *. No significant issues noted on an osteopathic structural exam other than those noted in the History and Physical/Consult. Vitals: Vital Signs Temp Pulse Resp BP Pulse Ox 08/15/21 15:55 97.4 F L 63 18 126/75 98 Intake and Output 08/15/21 08/15/21 08/15/21 06:59 14:59 22:59 Other: # Voids 1 Results CBC & Chem 7: 08/16/21 06:16 08/16/21 06:16
[2021-08-15] MEDS: HYDROmorphone 1 MG/ML 1 ML SYRINGE IVP PRN (19:43)
[2021-08-15] MEDS: GABAPENTIN 300 MG CAP PO SCH (21:52)
--- NOTE | 2021-08-15 22:03 | CT ---
EXAMINATION TYPE: CT cervical spine wo con DATE OF EXAM: 08/15/2021 COMPARISON: 12/22/2020 HISTORY: POST OP DISC REPLACEMENT CT DLP: 512 mGycm Automated exposure control for dose reduction was used. Images obtained from the skull base to the T1 level without contrast. There is metal disc prosthesis at the C5-6 and C6-7 levels. The posterior elements are intact. Facet joints are intact. Normal alignment. Prevertebral soft tissues are not enlarged. There is no cervical paraspinal mass. T here is small amount of air in the soft tissues at the superior mediastinum and right paratracheal re gion consistent with the recent surgery. IMPRESSION: There is a mild pneumomediastinum. Disc prosthesis surgery in good position.
[2021-08-15] MEDS ORDERED: LACTATED RINGERS 1,000 ML IV SCH (22:07)
[2021-08-15] MEDS ORDERED: LIDOCAINE 1% (10MG/ML) FOR IV START INTRADERMA PRN (22:07)
[2021-08-15] MEDS ORDERED: ONDANSETRON 4 MG/2 ML VIAL IVP ONE (22:07)
[2021-08-15] MEDS ORDERED: MIDAZOLAM 2 MG/2 ML VIAL IV PRN (22:07)
[2021-08-15] MEDS ORDERED: DEXAMETHASONE SOD PHOSPHATE 4 MG/ML 1 ML VIAL IV ONE (22:07)
[2021-08-16] MEDS: HYDROmorphone 1 MG/ML 1 ML SYRINGE IVP PRN (02:31)
[2021-08-16 06:22] VITALS: BP 128/76; PULSE 59; RESP 18; TEMP 98.3
[2021-08-16] MEDS: GABAPENTIN 300 MG CAP PO SCH (08:11)
--- NOTE | 2021-08-16 08:14 | P.PN ---
Subjective Progress Note Date: 08/16/21 Principal diagnosis: s/p C5-C7 total disc replacement Patient seen and examined today. She is sitting up in bed with soft collar intact. Patient states that her pain is managed at this time on current regimen, but is requesting a liquid form of pain medication at discharge due to difficulty of swallowing. Patient has been up to the restroom independently and tolerating well. Patient states that the numbness is still present in the left upper extremity with slight improvement since surgery. Surgical dressing is clean dry and intact. Patient is anticipating discharge to home today. Patient denies fevers/chills, nausea/vomiting, or chest pain. Objective - Vital Signs Vital signs: Vital Signs Temp 98.3 F 08/16/21 06:21 Pulse 59 L 08/16/21 06:21 Resp 18 08/16/21 06:21 BP 128/76 08/16/21 06:21 Pulse Ox 98 08/16/21 06:21 Intake & Output 08/15/21 08/16/21 08/16/21 18:59 06:59 18:59 Intake Total 240 540 Balance 240 540 Weight 72.575 kg Intake: Oral 240 540 Other: Voiding Method Toilet # Voids 1 2 - Exam Physical Examination General: The patient is awake and alert, in no acute distress Skin: Skin is warm and dry with no obvious rashes or lesions. Hairy patches absent, no dorsal skin dimples, no cafe au lait spots. Surgical incision to anterior cervical region. Eye: Pupils are equal, round and reactive to light, extra-ocular movements are intact; there is normal conjunctiva bilaterally. Neck: The neck is supple, tenderness due to surgical procedure. ROM limited at this time due to pain. Cardiovascular: There is a regular rate and rhythm. No murmur, rub or gallop is appreciated. Respiratory: Lungs are clear to auscultation, respirations are non-labored, breath sounds are equal. Gastrointestinal: Soft, non-distended, non-tender abdomen . Back: There is no tenderness to palpation in the midline, paralumbar, parathoracic or buttocks region. There is no obvious deformity . Musculoskeletal: ROM limited secondary to pain and stiffness from surgical procedure. Shoulder abduction 4/5, elbow flexors 4/5, wrist dorsiflexors 4/5. finger abductor 4/5, brake lining finisher 4/5, hip flexor 5/5, knee flexor 5/5, ankle dorsiflexor 5/5, ankle plantarflexion 5/5 and extensor hallucis 5/5. Neurological: CN 2-12 intact. There are no obvious motor or sensory deficits. Movement and coordination equal and intact. Sensory exam to light touch intact C5-T1 and intact from L2-S1. Reflexes 2/4 in bilateral upper and lower extremities. Negative Hoffmans, babinski, and clonus signs. Psychiatric: Cooperative, appropriate mood & affect, normal judgment. Assessment and Plan Assessment: Postop day 1 status post C5-C7 total disc replacement Plan: Plan: -Appreciate talent development consultant and team management. -Activity: Ambulate QID, OOB all meals, up and about, limit lifting bending twisting to less than 5 lbs. Use walker or cane if needed for stability. -Daily PT/OT, increase ambulation strength and balance. -Brace when up and about, not needed in bed when sleeping -Pain control: Adequate at this time -Meds: reviewed -GI ppx: senna, Miralax -DVT PPX: Maynor Pollard -Hygiene: Shower today. Maintain dressing clean and dry. -Encourage IS 10x/hr -Dispo: Anticipate discharge home today. *I reviewed and discussed this case with my attending Dr. Royal, whom has reviewed this chart and films and is in agreement with assessment and plan of care as outlined above. I have personally seen and examined the patient, performed the documentation and the assessment and plan as written. Number of minutes spent on the visit: 20 minutes. Time with Patient: Less than 30
[2021-08-16 09:18] LABS: Basophils # (A) 0.03 X 10*3/uL (0.00-0.10); Basophils % (A) 0.3 %; Eosinophils # (A) 0.08 X 10*3/uL (0.04-0.35); Eosinophils % (A) 0.8 %; HCT 36.8 % (37.2-46.3); HGB 12.3 g/dL (12.0-15.0); Immature Grans, Automated 0.3 %; Lymphocytes # (A) 2.75 X 10*3/uL (0.90-5.00); Lymphocytes % (A) 27.1 %; MCH 32.3 pg (27.0-32.0); MCHC 33.4 g/dL (32.0-37.0); MCV 96.6 fL (80.0-97.0); Mean Platelet Volume 11.6 fL (9.5-12.2); Monocytes # (A) 0.79 X 10*3/uL (0.20-1.00); Monocytes % (A) 7.8 %; NRBC Per 100 WBC 0 /100 WBCS (0.0-0.0); Neutrophils # (A) 6.45 X 10*3/uL (1.80-7.70); Neutrophils % (A) 63.7 %; Platelet Count 268 X 10*3/uL (140-440); RBC 3.81 X 10*6/uL (4.10-5.20); RDW 12.8 % (11.5-14.5); WBC 10.13 X 10*3/uL (4.50-10.00)
--- NOTE | 2021-08-16 09:33 | P.DS ---
Providers Date of admission: 08/15/2021 Expected date of discharge: 08/16/21 Attending physician: Michael Royal DO Consults: 08/15/21 13:52 Consult Physician Routine Consulting Provider: [facility] Consult Reason/Comments: Medical Management Do you want consulting provider notified?: Yes Primary care physician: Stated None Hospital Course: Hospital Course: The patient was evaluated preoperatively and found to have the diagnosis of C5 to C7 disc herniation. They underwent appropriate preoperative care and were willing to undergo the intended procedure. They underwent a successful C5 to C7 total disc replacement, were recovered appropriately and sent to the floor. While on the floor they worked with physical therapy, occupational therapy and nursing to enhance their recovery experience. Their pain was well controlled through their stay and they were started on appropriate medications, DVT ppx modalities, activity and dietary needs. Daily labs were monitored closely, and transfusions were only used when necessary. Medicine as well as other consulting services have made their input and have helped with our team approach and multidisciplinary care. PT milestones have been met and passed and they have made the recommendation of home for this patient and treating providers agree with this care path. The patient will be discharged home with appropriate medications, instructions and follow-up information and in stable condition. Patient Condition at Discharge: Good Plan - Discharge Summary Discharge Rx Participant: Yes New Discharge Prescriptions: New cefaDROXiL [Duricef] 500 mg PO Q12HR 5 Days #10 cap Cyclobenzaprine [Flexeril] 5 mg PO TID #30 tablet Polyethylene Glycol 3350 [Miralax] 17 gm PO DAILY PRN #527 gm PRN Reason: Constipation Sennosides/Docusate Sodium [Senna Plus 8.6-50 mg Tablet] 1 each PO DAILY #20 tablet Gabapentin 300 mg PO TID #90 cap HYDROcodone/APAP [[place] Elixir 7.5-325Mg/15Ml] 15 ml PO Q4HR PRN 7 Days #630 ml PRN Reason: Pain No Action ondansetron HCL [Zofran] 4 mg PO DIRECTED PRN PRN Reason: Nausea Ibuprofen [Motrin] 600 mg PO Q6HR PRN #30 tab PRN Reason: Pain Gabapentin 300 mg PO TID Discharge Medication List ondansetron HCL [Zofran] 4 mg PO DIRECTED PRN 02/20/17 [History] Ibuprofen [Motrin] 600 mg PO Q6HR PRN #30 tab 02/28/17 [Rx] Gabapentin 300 mg PO TID 08/10/21 [History] Cyclobenzaprine [Flexeril] 5 mg PO TID #30 tablet 08/16/21 [Rx] Gabapentin 300 mg PO TID #90 cap 08/16/21 [Rx] HYDROcodone/APAP [[place] Elixir 7.5-325Mg/15Ml] 15 ml PO Q4HR PRN 7 Days #630 ml 08/16/21 [Rx] Polyethylene Glycol 3350 [Miralax] 17 gm PO DAILY PRN #527 gm 08/16/21 [Rx] Sennosides/Docusate Sodium [Senna Plus 8.6-50 mg Tablet] 1 each PO DAILY #20 tablet 08/16/21 [Rx] cefaDROXiL [Duricef] 500 mg PO Q12HR 5 Days #10 cap 08/16/21 [Rx] Follow up Appointment(s)/Referral(s): Michael Royal DO [Doctor of Osteopathic Medicine] - 2 Weeks Activity/Diet/Wound Care/Special Instructions: Spine Discharge and Recovery Instructions Date of Surgery: 08/15/2021 Diagnosis: C5 to C7 disc herniation Procedure: C5 to C7 total disc replacement Medications: See medication list All medication refills should be obtained through your primary care doctor or your clinic spine surgeon. Please discuss prescription refills at your follow up appointment. Do not call the hospital for medication refills. Dressing: Leave your dressing in place for a total of 5 days post operatively. Then you may remove your dressing and leave open to air. Keep the area clean and if not able to keep area clean, then cover with sterile gauze and tape. Showering: You may shower 3 days after your procedure allowing soap and water to run over incision. Do not scrub. Do not soak. Blot dry. Follow up: Please confirm a follow up appointment with your surgeon 3 weeks post operatively. Please make an appointment to follow up with your PCP in 1-2 weeks after surgery for evaluation 3 phase, 3-week plan POST OP WEEKS 1-3 1. Lifting/carrying/pushing/pulling limited to less than 5 pounds. 2. Do not sit for longer than 15 minutes at one time. Get up and walk around. Prolonged sitting is NOT advised. If you lay down, see if you can tolerate laying down on you front (belly side) 3. Walk for periods of 15 minutes = 1 mile but no longer; do it multiple times times each day. 4. Ice your low back after activity. POST OP WEEKS 3-6 1. Lifting limited to less than 20 pounds. 2. Do not sit for longer than 30 minutes at a time. Frequently change positions. Use a sit-to stand workstation or take frequent breaks from sitting if you have returned to work. 3. Walk for 30 minutes each day. If possible, do these three or more times a day POST OP WEEKS 6+ At your 6-week appointment we will give you a physical therapy referral to focus on a core stabilization and strengthening program. You should also work on leg & buttock strengthening, hamstring & quadriceps stretching, and continue a low impact aerobic activity program such as swimming, walking, or riding a stationary bicycle. During the initial 6 weeks after your surgery, you are at the highest risk of re-injuring your spine. You should generally avoid BLTs (bending, lifting and twisting combination motions) and follow the above guidelines to reduce the chance of reinjury. You can anticipate post op appointments in our office at approximately 3 weeks and 6 weeks after your surgery. INCISION CARE: If your incision is not draining you do NOT need to cover it with a dressing. Keep your incision clean, dry and intact. In most cases, we apply skin glue, [place] or sutures to the incision at the time of surgery. This will be like a crust or have the appearance of a scab and will fall off in time on its own. The stitches or elgin need to be removed at 3 weeks post op appointment. You may begin to shower 3 days after surgery (this allows the glue to espinal well). However, please avoid scrubbing the incision site or peeling off any of the skin glue. This will ensure optimal healing of your incision. Also, during this time avoid soaking the incision area in water - this includes swimming pools, hot tubs or baths. No ointments, lotions or oils on the incision until your surgeon allows. Leave el[place], sutures or glue in place. Neurological dysfunction that comes on suddenly can also be a sign of a stroke. Below some common symptoms of a stroke are listed: B - balance difficulty such as sudden onset walking or leaning to one side - NEW E - eye problem such as sudden double vision or trouble seeing on one side - NEW F - Facial weakness or numbness on one side - NEW A - Arm or leg weakness or numbness on one side - NEW S - Slurred speech or difficulty with word finding - NEW T - Time is BRAIN! Call 911 as soon as you recognize these symptoms Diet: Consume a regular diet rich in vegetables and lean protein such as chicken or fish. You should consume in a ratio of approximately 20% fats|40% carbohydrates|40%protein. Vegetables, sweet potatoes, brown rice or quinoa are examples of good carbohydrates. Chips, white bread, cookies and sweets/sugar are examples of bad carbohydrates. Limit your bad carbs, go wild with good carbs. "Life's Simple 7" Guidelines as per [place] [employer] These will help you reclaim your life after surgery and spout liner helper in your recovery, keeping in mind your restrictions. (1) Get Active. Physical activity can help people lose weight, control high blood pressure and cholesterol, feel emotionally better, and sleep better. (2) Control Cholesterol. Avoid a diet high in saturated fat, trans fat, & cholesterol. Limit whole milk & cream, ice cream, butter, egg yolks, processed meats (like sausage and hot dogs), and fatty meats. Choose healthy foods that are low in saturated fat, trans fat and cholesterol which include: Fruits and vegetables, fiber rich grain products (like whole grain pasta and brown rice), lean meat such as chicken, fish, nuts, seeds, and legumes. (3) Eat Better. Eat small portions. Shop at the grocery with a list and do not stray from it. Tips for a healthy diet include: Limit sodium intake to less than 1500mg daily, avoid prepackaged, processed, and fast foods, choose a diet rich in fruits, vegetables, and whole grain, high fiber foods, and limit saturated & cholesterol in your diet. (4) Manage Blood Pressure. If you have high blood pressure, you should have a cuff at home so that you can check your blood pressure regularly. Be sure you have a good cuff. An arm one is generally better than a wrist one. Bring the cuff to a doctor's appointment to validate that the measurements that your cuff are taking are accurate. Take your blood pressure twice daily when you are sitting down and relaxing. Record the numbers in a log and bring this log with you to your doctors' appointments. (5) Lose Weight if your BMI is above 25. A healthy BMI is between 19-25. To calculate Your BMI, you may use a Standard BMI Calculator on the NIH BMI website: <www.nhlbi.nih.gov/guidelines/obesity/BMI/bmicalc.htm>. Weigh oneself daily. If you are overweight, set a goal to lose weight. A pound a week loss if needed is a good target. (6) Reduce Blood Sugar. Limit foods and liquids with "added sugars." (Added sugars include sucrose, fructose, glucose, maltose, dextrose, high fructose corn syrup, corn syrup, concentrated fruit juice and honey). (7) Stop Smoking. If you smoke, quitting smoking is one of the best things that you can do for your health. Smoking increases your risk of heart attack, stroke, and peripheral vascular disease, which is a build-up of plaque in your arteries. Please discard all the cigarettes and lighters in your house. Have a plan for what you will do when you have the urge to smoke. Direct and second- hand smoke shortens your life as well as the lives of your family, friends and others around you. For your health and the health of those around you, please consider quitting! Proper Bending Body Mechanics: Maintain a wide stance with one foot slightly in front of the other. Keep your back straight. Bend utilizing the strength in your hips and knees. Do not bend at the waist. Maintain the lifted object at your waist-level close to your body. Avoid lifting weight that causes immediately pain or pain anywhere in the body afterwards. Smoking/Nicotine If there was ever one thing that you could do to increase your overall health, decrease your risk of cardiovascular problems by about 39% the second you make the choice, it is to STOP SMOKING. Your body's most instant gratification is the second you stop smoking. We have all heard the studies, read the articles but it is true, smoking is extremely bad for your overall health, and moreover it is detrimental to your bone health. Nicotine, IN ANY FORM, kills bone cells, prevents your body from healing fractures, and significantly prolongs healing after surgery. In spine surgery specifically, it increases your risk of not healing your bones to create a fu mihir and increases your risk of having a revision surgery due to this up to 60%. I know it is hard. I know it feels impossible. But there are ways. Take control of your life. We are here to help you through it. And when you are ready, ask us and we can direct you to help if you desire. Use the START Plan to Quit Smoking (please visit the Helpguide.org website listed below for more information): S = Set a quit date. Choose a date within the next 2 weeks, so you have enough time to prepare without losing your motivation to quit. If you mainly smoke at work, quit on the weekend, so you have a few days to adjust to the change. T = Tell family, friends, and co-workers that you plan to quit. Let your friends and family in on your plan to quit smoking and tell them you need their support and encouragement to stop. Look for a quit jelly who wants to stop smoking as well. You can help each other get through the rough times. A = Anticipate and plan for the challenges you'll face while quitting. Most people who begin smoking again do so within the first 3 months. You can help yourself make it through by preparing ahead for common challenges, such as nicotine withdrawal and cigarette cravings. R = Remove cigarettes and other tobacco products from your home, car, and work. Throw away all your cigarettes (no emergency pack!), lighters, ashtrays, and matches. Wash your clothes and freshen up anything that smells like smoke. Shampoo your car, clean your drapes and carpet, and steam your furniture. T = Talk to your doctor about getting help to quit. Your doctor can prescribe medication to help with withdrawal and suggest other alternatives. If you can't see a doctor, you can get many products over the counter at your local pharmacy or grocery store, including the nicotine patch, nicotine lozenges, and nicotine gum. Resources for Quitting Smoking: <https://www.[place].gov/documents/[facility]/Quit_Tobacco_Resources_for_patients_3 13480_7.pdf> Supplementation: Take recommended dosages of Vitamin D and Calcium to help fortify your bones and help them to heal. See your health maintenance packet for dosages and recommended levels. DVT/VTE prophylaxis: You will be given compression stockings from the hospital. Wear these daily for the first two weeks after surgery. You may take them off at night. You may be prescribed a medication to help thin your blood. Take this as directed. If you are not prescribed this medication, early and frequent ambulation has been shown to be the best prophylaxis to deep vein thrombosis and sequelae related to this event. Discharge Disposition: HOME SELF-CARE
[2021-08-16 09:47] LABS: African American GFR (CKD) 135.9 (60.0-200.0); Anion Gap 7.7 mmol/L (10.00-18.00); BUN/Creat Ratio 9.83 Ratio (12.00-20.00); Blood Urea Nitrogen 5.9 mg/dL (9.0-27.0); Carbon Dioxide 26.3 mmol/L (20.0-27.5); Non-African American GFR(CKD) 117.3 (60.0-200.0); Potassium 3.4 mmol/L (3.5-5.5)
[2021-08-16] MEDS ORDERED: POTASSIUM BICARBONATE/CIT AC 20 MEQ TABLET.EFF PO ONE (10:01)
--- NOTE | 2021-08-16 10:01 | P.PN ---
Subjective Progress Note Date: 08/16/21 Hospital course: Patient is a very pleasant 36-year-old female with past medical history of gestational hypertension, herpes, migraines, neuropathy, and herniated disks. She is currently admitted under orthospine surgical team status post cervical fusion. We have been consulted for continued medical management throughout patient's hospitalization. Physical exam: Patient seen and fully evaluated at bedside. Patient reports having an episode of vomiting yesterday evening and believes this was the result of pain medications on an empty stomach. Patient reports since she has been doing well and denies having any nausea, vomiting, or any other complaints. Patient reports postoperative pain is controlled with current pain medication regimen. She denies having any numbness/tingling/weakness in her extremities. Potassium was low this morning at 3.4 and orders were placed for replacement. Patient is medically stable at this time. Vital signs reviewed and stable. General: Nontoxic, no distress and appears stated age. Derm: Skin warm and dry, normal coloration for ethnicity. Head: Atraumatic, normocephalic and symmetric. Soft c-collar in place. Eyes: EOMs intact, no lid lag, and anicteric sclera Mouth: no lip lesions, mucus membranes moist Cardiovascular: regular rate and rhythm with normal S1S2, no murmur, positive posterior tibial pulses bilaterally, and cap refill < 2 seconds. Lungs: Respirations even, regular, and unlabored on room air. Lungs CTA b ilaterally, no rhonchi, no rales, no wheezing, and no accessory muscle usage. Abdominal: soft, nontender to palpation, no guarding, no appreciable organomegaly Ext: ROM intact. No gross muscle atrophy, no edema, no contractures Neuro: Speech clear, face symmetrical and CN II-XII grossly intact with no noted focal neuro deficits Psych: Alert and oriented to person, place, time, and situation. Appropriate and pleasant affect. Assessment and Plan of Care: Herniated disks resulting in neuropathy Status post C5 through C7 cervical fusion -Management per primary admitting orthospine surgical team including pain management, DVT prophylaxis, wound care, and PT/OT. -Patient currently on DVT prophylaxis with SCDs. -Patient to continue daily medication regimen with gabapentin 300 mg 3 times daily for treatment of neuropathy. -Symptomatic care and pain management -Encourage incentive spirometry use 10-15 times hourly while awake. -We will follow up with morning labs including CBC and BMP. Hypokalemia -Potassium replaced. Thank you for allowing us to participate in the care of this pleasant patient. Do not hesitate to contact us with questions. Someone can be reached from the [facility] hospitalist group all hours of the day at [phone] or via perfect serve. I reviewed the documentation as provided by the PRATIK above, who is the original author of this note. I agree with the documented assessment and plan, with the following changes: None Objective - Vital Signs Vital signs: Vital Signs Temp 98.3 F 08/16/21 06:21 Pulse 59 L 08/16/21 06:21 Resp 18 08/16/21 06:21 BP 128/76 08/16/21 06:21 Pulse Ox 98 08/16/21 06:21 Intake & Output 08/15/21 08/16/21 08/16/21 18:59 06:59 18:59 Intake Total 240 540 120 Balance 240 540 120 Weight 72.575 kg Intake: Oral 240 540 120 Other: Voiding Method Toilet # Voids 1 2 1 - Labs CBC & Chem 7: 08/16/21 06:16 08/16/21 06:16 Labs: Abnormal Lab Results - Last 24 Hours (Table) 08/16/21 08/16/21 Range/Units 06:16 06:16 WBC 10.13 H (4.50-10.00) X 10*3/uL RBC 3.81 L (4.10-5.20) X 10*6/uL Hct 36.8 L (37.2-46.3) % MCH 32.3 H (27.0-32.0) pg Potassium 3.4 L (3.5-5.5) mmol/L Anion Gap 7.70 L (10.00-18.00) mmol/L BUN 5.9 L (9.0-27.0) mg/dL BUN/Creatinine Ratio 9.83 L (12.00-20.00) Ratio
--- NOTE | 2021-08-17 08:12 | P.OP ---
Date of Procedure: 08/15/21 Preoperative Diagnosis: 1. C5-C7 Herniated nucleus pulposus 2. Cervical Stenosis, severe 3. LUE weakness 4. LUE radiculopathy Postoperative Diagnosis: 1. C5-C7 Herniated nucleus pulposus 2. Cervical Stenosis, severe 3. LUE weakness 4. LUE radiculopathy Procedure(s) Performed: 1. Anterior right-sided Fernández-Ibrahim approach 2. C5-C6 total disc replacement (88327) 3. C6-C7 total disc replacement (62588) 4. Use of intraoperative neuro monitoring 5. Interpretation of intraoperative fluoroscopy less than 1 hour (95069) Implants: Prodisc C large deep 6mm x1 Prodisc C extra-large 6 mm x1 Anesthesia: GETA Surgeon: Michael Royal Vegetable Buncher #1: Germaine Pina Estimated Blood Loss (ml): 50 IV fluids (ml): 1,000 Urine output (ml): 0 Pathology: none sent Condition: stable Disposition: PACU Indications for Procedure: Pablito Javier is presenting for evaluation of her cervical spine. It was my pleasure to have seen and examined Pablito Javier. In our visit today we have had a chance to go over subjective complaints, physical examination findings and treatments including the natural course history without intervention and various interventional options. The patients imaging demonstrates XRAYS: C 3-4 and C4-5 spondylosis noted. There is kyphosis of the C3-4 segment with trace anterior listhesis noted through flexion. Similar findings at C4-5 noted. There is no overt instability and C0-1 and C1-2 joints appear stable through motion. There are no othe fracture or dislocations noted. MRI: C5-6 and C6-7 HNP with moderate to severe stenosis in these areas along with b/l foraminal L>R stenosis. There is no instability noted C0-1 or C1-2. There is subaxial stability. There is disc height loss C5-7 related to HNP and stenosis as well as spondylosis. There is no fracture or dislocation noted at this time. On physical exam, Pablito Javier demonstrates restricted ROM to the left side as well as significant weakness with regard to the left upper extremity. I have explained to the patient that as their condition progresses it will cause further neurological deficits and eventual paralysis. Based on the patients imaging, physical exam, and the rapid progression and disabling nature of their symptoms, at this time I recommend surgery in the form or a: C5-C7 Total Disc Replacement. I discussed the risk and benefits of this procedure at length with Pablito Javier. The patient agreed to considered pursuing the procedure abovementioned. Prior to surgery, she should follow up with her PCP (Cardio, ID, IM etc) for clearance. Questions were invited and answered, and the patient wishes to proceed as outlined below. Currently, I am recommendin.C5-C7 Total Disc Replacement 2.Follow up with PCP for surgical clearance 3.Review of surgical risks and benefits as well as an educational packet on the proposed surgical procedure. Description of Procedure: The patient was seen and examined in the preoperative area. All preoperative protocols were followed. Informed consent was obtained risks and benefits of the procedure were discussed at length. Risks including bleeding infection damage to the surrounding tissue and risk of reoperation were discussed with the patient. Risk of anesthesia up to and including was a discussed with the patient. These are outlined in the risk review. They were willing to accept these risks and all of the risks of surgery. The patient was given a weight- based dose of antibiotics in the form of 2 g Ancef. The patient was seen and evaluated by the anesthesia team who deemed them fit for surgery. The site was marked, the patient was willing to proceed with the procedure. The patient was transferred to the operative suite by the Department of anesthesia. They were then drifted off to sleep by the department anesthesia and GETA was performed. The patient tolerated this well. Once confirmation of lines and ventilation the patient was transferred to a supine flattop Mazin table very carefully. A shoulder roll was placed and the shoulders were gently taped down the head was placed on a donut and was secured to the table.. All bony prominences including wrists, elbows, axilla, chest, hips, and thighs, and feet were padded very well. Special attention was paid to the genitalia and these were padded accordingly. SCDs were placed on bilateral lower extremities and were connected. Arms were well padded and placed at her side thumbs up well-padded. Once in position, again we confirmed good ventilation capabilities and that lines were running appropriately. The patient's anterior cervical spine was then exposed. 1010s were placed outlining the incision site. Standard alcohol was used to clean the incision site and allowed to dry. C-arm was used to biomark the patient and confirm level for incision which was marked with a skin marker. Operative briefing was performed with all teams and everyone in agreement to proceed. The patient was then prepped and draped in a normal sterile fashion. Timeout was then performed and all parties were in agreement with the procedure to be performed. Transverse skin incision was made over the previously bowel marked area 4 cm. Standard anterior Fernández-Ibrahim approach to the anterior cervical spine was performed. Blunt dissection taken down into the anterior longitudinal ligament was identified the midline structures were carefully moved aside. Shadow line retractor was then placed and secured. Once the interbody longitudinal ligament was identified a blunt probe was placed adjacent to a disc level and a lateral fluoroscopic image confirmed our levels. We then proceeded with the C6-C7 level first. Subperiosteal dissection was done of the longissimus muscles which were elevated on either side and the retractors placed underneath these. Under lateral fluoroscopy Olney pins were placed parallel to the disc space at C6 and C7. Distractor was then placed and secured and careful distraction was performed parallel in this area. The microscope was then brought in for visualization and further dissection. Discectomy was performed at C6-C7 using Kerrison rongeurs Gita Tucker as well as curettes to carefully scrape the cartilage and the disc from the area. There is a large posterior disc herniation which was then cleared out. The posterior longitudinal ligament was identified and resected very carefully. Bilateral foraminotomies were performed with Kerrison rongeurs. We confirmed good decompression of the nerves in this area as well the disc was cleared uncovertebral joint to uncovertebral joint. We then chose a sizer and under fluoroscopic imaging and guidance we sized the disc space a extra large disc was selected and the trial component was placed. We then placed the jig for the lisa and under live lateral fluoroscopy we drilled for the lisa. We then passed the chisel over these areas under fluoroscopy as well. AP and lateral fluoroscopy confirmed good placement of the disc and the jigs. We then removed the trial and implanted the final component this is done under lateral fluoroscopy. Once in good position motors were run and they were stable. The disc was tested and was stable. We then removed the Chano pin from C7 placed bone wax in the to void and moved onto the C5-C6 level. Olney pin was then placed in the C5 vertebral body parallel to the C5- C6 disc space. We then performed subperiosteal dissection of the longissimus muscles and placed retractors underneath this. We are able to visualize uncovertebral joint to uncovertebral joint the distractor was then placed and secured and careful distraction was taken out with parallel distraction. This is done under fluoroscopic guidance as always. We then performed discectomy using Kerrison rongeurs curettes as well as a high-speed bur. Use a high-speed bur to bur off the posterior osteophyte of the inferior endplate of C5. Posterior longitudinal ligament was identified and resected bilateral foraminotomies performed and confirmed good decompression of nerves on either side. Meticulous hemostasis was performed. We then sized the disc space for a large deep the jig was placed and confirmed to be in good position on AP and lateral fluoroscopy. We then placed the jig for drilling of the lisa the lisa were then drilled underlying lateral fluoroscopy. We then passed the chisel over these areas to clear the lisa. The jig was then removed we irrigatedagain and clear the lisa as well. We then selected our final component and impacted into place under lateral fluoroscopic guidance. Once in position it was tested and it was stable motors were run and they were stable. Olney pins were then removed bone wax were placed in the void bone wax was meticulously placed over any open bone ends we irrigated the wound thoroughly with normal sterile saline. We then placed Surgicel over the area. Retractors were removed we investigated the area there is no other injuries to surrounding structures. Meticulous hemostasis was achieved. We then proceeded with closure 3-0 Vicryl was placed in the platysmal layer followed by 3-0 Vicryl in the subcu layer. 40 strata fix was placed in the subcuticular layer and skin glue placed on the skin wound edges approximated very well. The wound was cleaned and dressed sterilely with a operative foam. The patient was placed in a soft foam collar. There are no complications. The patient was transferred back to their hospital bed atraumatically. Patient was then awakened and extubated by the department of anesthesia having tolerated the procedure very well with no complications. They were transferred to the postoperative care unit in stable condition.
== END 2021-08-16 12:33 | disposition home or self-care (01) ==
LOC: OR 06:03 → 6NMEDSUR 10:29 → OR 08-16 12:33
PROVIDERS: ATTEND Orthopaedic Surgery
DX: M50.223 Other cervical disc displacement at C6-C7 level (principal); M48.02 Spinal stenosis, cervical region; Z79.1 Long term (current) use of non-steroidal anti-inflammatories (NSAID); Z79.899 Other long term (current) drug therapy; Z88.5 Allergy status to narcotic agent; M50.222 Other cervical disc displacement at C5-C6 level; M47.812 Spondylosis without myelopathy or radiculopathy, cervical region; K21.9 Gastro-esophageal reflux disease without esophagitis; G62.9 Polyneuropathy, unspecified; E87.6 Hypokalemia; F17.210 Nicotine dependence, cigarettes, uncomplicated; G89.18 Other acute postprocedural pain; J98.2 Interstitial emphysema; Z88.6 Allergy status to analgesic agent
CPT/HCPCS: 22551; 22552; 20680; 97162; 86900; 86901; 80048; 85025; 86850; 72040; 72125; L0120; C1713; C1762; J0690 ×2; J2405; J1170 ×3

== ENCOUNTER → 2023-06-15 | Outpatient (CLI) | payer BC, OTHER ==
--- NOTE | 2023-06-15 11:15 | MR ---
EXAMINATION TYPE: MR angio head wo con DATE OF EXAM: 06/15/2023 COMPARISON: NONE HISTORY: Migraines, spots in vision TECHNIQUE: Utilizing 3-D [id number] intracranial MRA of the [place] of [place] was performed. FINDINGS: The vertebrobasilar and carotid systems are patent. There is no sizable aneurysm or vascular malform ation. IMPRESSION: 1. No evidence of vascular malformation or sizable aneurysm.
== END | disposition home or self-care (01) ==
LOC: RADMRIMAIN 10:25
PROVIDERS: ATTEND Family Medicine
DX: G43.109 Migraine with aura, not intractable, without status migrainosus (principal); H53.9 Unspecified visual disturbance
CPT/HCPCS: 70544

== ENCOUNTER 2024-11-02 11:30 | Emergency (ER) | payer OTHER ==
--- NOTE | 2024-11-02 13:32 | ED ---
Headache HPI - General Chief Complaint: Headache Stated Complaint: head pressure Time Seen by Provider: 11/02/24 13:29 Source: patient, RN notes reviewed Mode of arrival: ambulatory Limitations: no limitations - History of Present Illness Initial Comments: 39-year-old female presenting for headache x 3 days. Describes a pressure sensation in extending from her bilateral temples to the top of her head. States pain came on gradually and is constant. States pressure is worse if she stands up and improved with laying down flat. She does have a history of cervical spine surgeries and has an upcoming occipital nerve block however reports this headache feels different. Denies head injury or trauma. Denies vision changes or focal deficits. Denies fevers. Admits to nausea however denies vomiting. - Related Data Home Medications Medication Instructions Recorded Confirmed ondansetron HCL [Zofran] 4 mg PO DIRECTED PRN 02/20/17 08/10/21 Gabapentin 300 mg PO TID 08/10/21 08/10/21 Previous Rx's Medication Instructions Recorded Ibuprofen [Motrin] 600 mg PO Q6HR PRN #30 tab 02/28/17 Cyclobenzaprine [Flexeril] 5 mg PO TID #30 tablet 08/16/21 Gabapentin 300 mg PO TID #90 cap 08/16/21 HYDROcodone/APAP [[place] Elixir 15 ml PO Q4HR PRN 7 Days #630 ml 08/16/21 7.5-325Mg/15Ml] Indomethacin [Indocin] 25 mg PO BID 14 Days #28 capsule 08/16/21 Sennosides/Docusate Sodium [Senna 1 each PO DAILY #20 tablet 08/16/21 Plus 8.6-50 mg Tablet] cefaDROXiL [Duricef] 500 mg PO Q12HR 5 Days #10 cap 08/16/21 polyethylene glycoL 3350 [Miralax] 17 gm PO DAILY PRN #527 gm 08/16/21 Allergies Allergy/AdvReac Type Severity Reaction Status Date / Time acetaminophen AdvReac Nausea & Verified 08/10/21 11:26 [From Tylenol-Codeine #3] Vomiting codeine AdvReac Nausea & Verified 08/10/21 11:26 Vomiting Review of Systems ROS Statement: Those systems with pertinent positive or pertinent negative responses have been documented in the HPI. ROS Other: All systems not noted in ROS Statement are negative. Past Medical History Past Medical History: GERD/Reflux Additional Past Medical History / Comment(s): herpes History of Any Multi-Drug Resistant Organisms: MRSA Date of last positivie culture/infection: 2010 MDRO Source:: right knee Additional Past Surgical History / Comment(s): EGD, neck surgery Past Anesthesia/Blood Transfusion Reactions: Motion Sickness Past Psychological History: No Psychological Hx Reported Smoking Status: Never smoker Past Alcohol Use History: None Reported Past Drug Use History: None Reported - Past Family History Mother Family Medical History: Cancer, Deep Vein Thrombosis (DVT), Pulmonary Embolus General Exam Limitations: no limitations General appearance: alert, in no apparent distress Head exam: Present: atraumatic, normocephalic, normal inspection Eye exam: Present: normal appearance, PERRL, EOMI. Absent: scleral icterus, conjunctival injection, periorbital swelling ENT exam: Present: normal exam, mucous membranes moist Neurological exam: Present: alert, oriented X3, CN II-XII intact Psychiatric exam: Present: normal affect, normal mood Skin exam: Present: warm, dry, intact, normal color. Absent: rash Course Vital Signs 11/02/24 11:44 Temperature 97.9 F Pulse Rate 63 Respiratory 18 Rate Blood Pressure 146/81 O2 Sat by Pulse 100 Oximetry Medical Decision Making - Medical Decision Making Was pt. sent in by a medical professional or institution (EMMANUEL Negron, BELT BACK OPERATOR, urgent care, hospital, or fpc...) When possible be specific @ -No Did you speak to anyone other than the patient for history (EMS, parent, family, police, friend...)? What history was obtained from this source @ -No Did you review nursing and triage notes (agree or disagree)? Why? @ -I reviewed and agree with nursing and triage notes Were old charts reviewed (outside hosp., previous admission, EMS record, old EKG, old radiological studies, urgent care reports/EKG's, fpc records)? Report findings @ -No old charts were reviewed Differential Diagnosis (chest pain, altered mental status, abdominal pain women, abdominal pain men, vaginal bleeding, weakness, fever, dyspnea, syncope, headache, dizziness, GI bleed, back pain, seizure, CVA, palpatations, mental health, musculoskeletal)? @ -Differential Headache: Migraine, tension, cluster, carbon monoxide, central venous thrombosis, pension karma temporal arteritis, acute closure glaucoma, intercranial hemorrhage, mastoiditis, sinusitis, head injury, this is not meant to be an all-inclusive list. EKG interpreted by me (3pts min.). @ -None X-rays interpreted by me (1pt min.). @ -None done CT interpreted by me (1pt min.). @ -CT brain reveals no acute bleed or mass effect U/S interpreted by me (1pt. min.). @ -None done What testing was considered but not performed or refused? (CT, X-rays, U/S, labs)? Why? @ -None What meds were considered but not given or refused? Why? @ -None Did you discuss the management of the patient with other professionals (professionals i.e. , PA, BELT BACK OPERATOR, lab, RT, psych nurse, neonatal social worker, branch customer service representative, teacher, senior grants officer, bottle caser)? Give summary @ -No Was smoking cessation discussed for >3mins.? @ -No Was critical care preformed (if so, how long)? @ -No Were there social determinants of health that impacted care today? How? (Homelessness, low income, unemployed, alcoholism, drug addiction, transportation, low edu. Level, literacy, decrease access to med. care, [facility], rehab)? @ -No Was there de-escalation of care discussed even if they declined (Discuss DNR or withdrawal of care, Hospice)? DNR status @ -No What co-morbidities impacted this encounter? (DM, HTN, Smoking, COPD, CAD, Cancer, CVA, ARF, Chemo, Hep., AIDS, mental health diagnosis, sleep apnea, morbid obesity)? @ -None Was patient admitted / discharged? Hospital course, mention meds given and route, prescriptions, significant lab abnormalities, going to OR and other pertinent info. @ - discharge. 39-year-old female presenting for headache x 3 days. No focal deficits. Neurological examination is unremarkable. Provided with migraine cocktail and IV fluids. CT brain reveals no acute bleed or mass effect. Upon reevaluation, patient reports mild improvement of symptoms. Patient was then provided with dose of Toradol. Patient can be safely discharged home and inst ructed to follow-up with her neurologist tomorrow. Appropriate return precautions discussed. Case was discussed with my ED attending Dr. Thomson. Undiagnosed new problem with uncertain prognosis? @ -No Drug Therapy requiring intensive monitoring for toxicity (Heparin, Nitro, Insulin, Cardizem)? @ -No Were any procedures done? @ -No Diagnosis/symptom? @ -Headache Acute, or Chronic, or Acute on Chronic? @ -Acute Uncomplicated (without systemic symptoms) or Complicated (systemic symptoms)? @ -Uncomplicated Side effects of treatment? @ -No Exacerbation, Progression, or Severe Exacerbation? @ -No Poses a threat to life or bodily function? How? (Chest pain, USA, OR, pneumonia, PE, COPD, DKA, ARF, appy, cholecystitis, CVA, Diverticulitis, Homicidal, Suicidal, threat to staff... and all critical care pts) @ -Not at this time Disposition Clinical Impression: Headache Disposition: HOME SELF-CARE Condition: Stable Instructions (If sedation given, give patient instructions): Acute Headache (ED) Additional Instructions: Follow-up with your neurologist tomorrow. Please return to the Emergency Department if symptoms worsen or any other concerns. Is patient prescribed a controlled substance at d/c from ED?: No Referrals: María Gifford DO [Primary Care Provider] - 1-2 days Time of Disposition: 15:37
[2024-11-02] MEDS: SODIUM CHLORIDE 0.9% 1,000 ML IV STA (13:36)
[2024-11-02] MEDS: METOCLOPRAMIDE 5 MG/ML 2 ML VIAL IVP STA (13:36)
[2024-11-02] MEDS: diphenhydrAMINE 50 MG/ML 1 ML VIAL IVP STA (13:36)
--- NOTE | 2024-11-02 13:55 | CT ---
EXAMINATION TYPE: CT brain wo con DATE OF EXAM: 11/02/2024 COMPARISON: None CLINICAL INDICATION: Female, 39 years old with history of headache x 3 days; PHH, DING x3days. CT DLP: 1156.7 mGycm Automated exposure control for dose reduction was used. Findings: The ventricles, basal cisterns and sulci over the convexities are within normal limits and there is n o mass effect or shift of midline structures. No abnormal density is seen throughout the brain parenchyma and there is no acute intra or extra-axia l hemorrhage. The posterior fossa including the brainstem, fourth ventricle and cerebellar pontine angles appear no rmal. Intraorbital contents appear normal and symmetric. There is mild mucosal thickening and fluid in the ethmoid air cells and right maxillary sinus. The calvarium is intact. IMPRESSION: 1. There is no acute bleed or mass effect. 2. Mild inflammatory changes in the right maxillary sinus and ethmoid air cells. [facility], , 11/02/2024 1:53 PM
[2024-11-02] MEDS: ACETAMINOPHEN TAB 500 MG TAB PO STA (15:09)
[2024-11-02] MEDS: KETOROLAC 15 MG/ML 1 ML VIAL IVP STA (15:10)
[2024-11-02 16:06] VITALS: BP 115/66; PULSE 60; RESP 15; TEMP 98.6
== END 2024-11-02 16:04 | disposition home or self-care (01) ==
LOC: EC 11:30
DX: R51.9 Headache, unspecified (principal); Z88.6 Allergy status to analgesic agent; Z88.5 Allergy status to narcotic agent
CPT/HCPCS: 70450; 99284; 96374; 96375 ×2; 96361; J1200; J2765; J1885